=== PATIENT | male | born 1965 | race Caucasian/White ===

== ENCOUNTER 2019-08-16 04:28 | Day surgery (SDC) | payer OTHER ==
[2019-08-14 16:06] VITALS: BMI 26.4
[2019-08-16] MEDS ORDERED: LIDOCAINE HCL 1%, 10 MG/ML (20ML VIAL) ONE (07:13)
--- NOTE | 2019-08-16 07:37 | HP ---
Satellite H - Chief Complaint Chief Complaint: left thumb pain - Past Medical History Allergies/Adverse Reactions: Allergies Allergy/AdvReac Type Severity Reaction Status Date / Time No Known Allergies Allergy Verified 08/16/19 06:15 - Current Medications Current Medications: Home Medications Medication Instructions Recorded Gluc Tang/Chondro Tang A/Vit C/Mn 1 each PO DAILY 08/14/19 [Glucosamine Chondroitin Tab] Rosuvastatin [Crestor -] 10 mg PO DAILY 08/14/19 Hydrocodone/Acetaminophen 1 each PO Q6H #20 tablet MDD 4 08/16/19 [Hydrocodone-Acetamin 5-325 mg] Ibuprofen [Advil -] 400 mg PO PRN PRN 08/16/19 Satellite Physical Exam - Physical Examination Vital Signs: Vital Signs Period Temp Pulse Resp BP Sys/Cardona Pulse Ox Last 24 Hr 97.6 F-97.6 F 59-59 20-20 106-106/75-75 96 General Appearance: Well Nourished, Well Developed, Alert & Oriented x3 ENT: Clear Lung: Normal air movement Extremities: Other (left thumb- + ttp, decr rom IP jt, nvi,) Neurological: Intact, Alert, Oriented Satellite Impression/Plan - Impression/Plan Impression: left thumb fx Operative Procedure: left thumb orif vs excision of bone fragment Date to be Performed: 08/16/19
[2019-08-16] MEDS ORDERED: PROPOFOL 20 ML ONE ×5 (08:04→09:07)
[2019-08-16] MEDS ORDERED: MIDAZOLAM HCL 2 MG/2 ML SINGLE DOSE VIAL ONE (08:04)
[2019-08-16] MEDS ORDERED: ceFAZolin 2 GRAM PREMIX BAG IVPB ONE (08:18)
[2019-08-16] MEDS ORDERED: ceFAZolin SODIUM 1 GM VIAL ONE (08:19)
[2019-08-16] MEDS ORDERED: LIDOCAINE HCL 1%, 10 MG/ML (20ML VIAL) NR ONE ×2 (08:38)
[2019-08-16] MEDS ORDERED: BUPIVACAINE HCL/PF 0.5% (5 MG/ML) 30 ML VIAL IJ ONE ×2 (08:38)
--- NOTE | 2019-08-16 09:57 | OP ---
Operative Note - Note: Operative Date: 08/16/19 Pre-Operative Diagnosis: left thumb fracture dislocation Operation: left thumb ORIF, excision of bone fragment (distal phalanx), repair of radial collateral ligament, repair of volar plate Implants: Mitek Mini Quick anchor Post-Operative Diagnosis: Same as Pre-op Surgeon: Alexis Brady Anesthesiologist/[employer]NAG[employer] ADVISER: Candy Barkley Anesthesia: Local, MAC Specimens Removed: bone fragment, left thumb Estimated Blood Loss (mls): 0 Drains, Volume Out (mls): 0 Blood Volume Replaced (mls): 0 Fluid Volume Replaced (mls): 700 Operative Report Dictated: Yes
[2019-08-16] MEDS ORDERED: ONDANSETRON 4 MG/2 ML VIAL IVPUSH PRN (10:12)
[2019-08-16] MEDS ORDERED: ACETAMINOPHEN 325 MG TABLET (FP) PO PRN (10:12)
[2019-08-16] MEDS ORDERED: oxyCODONE HCL 5 MG TABLET PO PRN (10:12)
[2019-08-16] MEDS ORDERED: LACTATED RINGERS SOLUTION 1,000 ML IV SCH (10:15)
[2019-08-16] MEDS ORDERED: ONDANSETRON 4 MG/2 ML VIAL ONE (10:32)
--- NOTE | 2019-08-16 11:05 | OP ---
DATE OF OPERATION: 08/16/2019 PREOPERATIVE DIAGNOSIS: Left thumb fracture-dislocation and interphalangeal joint instability. POSTOPERATIVE DIAGNOSIS: Left thumb fracture-dislocation and interphalangeal joint instability. PROCEDURE: Left thumb open reduction and internal fixation; excision of bone fragment, distal phalanx; repair of radial collateral ligament and volar plate. SURGEON: Jamie Junior MD ASSISTANTS: None. ANESTHESIOLOGIST: Candy Barkley, REF-DO ANESTHESIA: MAC anesthesia with local injection of 15 mL of 0.5% Marcaine and 1% lidocaine mix. DRAINS: None. COMPLICATIONS: None. BLOOD LOSS: None. BLOOD GIVEN: None. SPECIMEN: Bone fragment, left thumb distal phalanx. FLUID REPLACEMENT: Plasma-Lyte 500 mL. This patient is a 54-year-old male with a preoperative diagnosis of a left thumb fracture-dislocation while skiing about 6 weeks ago. [place] the [place], but there was a large bone fragment on the radial base of the distal phalanx, that was displaced, comprising about 12% to 15% of the articular surface. It proved to be problematic, painful, prominent, and was not only tenting the skin, but limiting his ability to move the left thumb and limiting function. After extensive preoperative discussions to discuss the options, we discussed the potential risks, complications, alternatives, and benefits of surgery versus nonsurgical treatment. At this point, we are electing to go forward with surgery. The patient understands that he may go on to require additional surgery, instability, stiffness, decreased function, chronic pain, posttraumatic arthritis, and other potential complications which were discussed. The patient was brought into the operating room. Peripheral IV placed. IV sedation given. MAC anesthesia was induced. The entire case was done under 3.8 loupe magnification. The left upper extremity was prepped and draped in usual sterile fashion, elevated, exsanguinated with an Esmarch bandage. The tourniquet inflated to 250 mmHg. A mid-axial incision was marked out with a marking pen over the radial aspect of the left thumb IP joint. Next, 12 mL of 0.5% Marcaine and 1% lidocaine mix were injected in and around the surgical incision. Incision was made with a number-15 scalpel blade. Subcutaneous hemostasis was achieved with a bipolar cautery. Careful dissection was done with a small Littler scissors, exposing the bone fragment. There was the radial collateral ligament attached to it. However, the bone itself was not of good quality. It was quite soft and osteopenic. In addition, the radial collateral ligament was quite frayed and torn. The articular cartilage on this bone fragment had been scraped away, and there was none left. Therefore, I elected not to fix this fragment as I think it was unfixable or did not have a good enough risks:benefits ratio. Therefore, taking great care to preserve all soft tissue, I excised the bone fragments, passed it off the field as specimen. The joint was not particularly unstable without this bone fragment. The area was copiously irrigated and washed out. I then used a number-15 scalpel blade and a Joliet elevator to try to free up the soft tissue including the collateral ligament and the joint capsule on the radial side of the thumb IP joint, but because it had been off and displaced for 6 weeks now, it had become quite shortened. There was not a lot of tissue to work with, and what was there did not have great length. I was able to mobilize it to reach the base of the distal phalanx. I then used a 2-0 Vicryl suture, one dorsal and one repairing the volar plate on the volar side to take pressure off the later collateral ligament repair. I also pinned the IP joint with a 0.062 K-wire under direct C-arm fluoroscopy guidance. The pin was then bent, cut, and a green pin cap applied. This was locking the IP joint in very mild flexion and with a mild valgus force to again take pressure off the collateral ligament repair. This helped and I then put in a mini Mitek suture QUICKANCHOR into the distal phalanx and then used the preloaded Ethibond sutures to repair the collateral ligament down to the exposed cancellous bone of the distal phalanx. Although there was not much soft tissue to work with as mentioned, I was happy with the overall repair. The area was copiously irrigated and washed out. Next, 4-0 undyed Vicryl was used to close the deep dermal layer. Final skin reapproximation was done with a running subcuticular 4-0 Biosyn suture. The area was then washed and dried, covered with Steri-Strips, 4 x 4's, fluffs between the fingers, Webril, and I used a 4-inch Ortho-Glass thumb spica splint and wrapped it with Lanie and Coban. The tourniquet was taken down after total tourniquet time of 59 minutes. There were no complications during the case, and the patient was brought to the ambulatory recovery room in stable condition. Overall, I would say that it was a more complex reconstruction than the normal collateral ligament repair. JAMIE JUNIOR M.D. [id number]
[2019-08-16 12:34] VITALS: TEMP 97.8
[2019-08-16] MEDS ORDERED: ACETAMINOPHEN 325 MG TABLET (FP) ONE (12:43)
[2019-08-16 13:45] VITALS: BP 125/79; PULSE 51
--- NOTE | 2019-08-17 16:00 | PATH ---
Surgical Pathology Report Patient Name: MELISSA CAM [facility]. Rec. #: [id number] /Age/Gender: 1965 (Age: 54) / M Account: [id number] Location: [facility] [place] [facility] Taken: 08/16/2019 Received: 08/16/2019 Reported: 08/17/2019 Physicians: Alexis Brady M.D. Specimen(s) Received BONE LEFT THUMB Clinical History Fracture left thumb Final Diagnosis BONE LEFT THUMB, EXCISION: PORTION OF BONE WITH MARKED REACTIVE AND REMODELING CHANGE. NO HISTOLOGIC EVIDENCE OF OSTEOMYELITIS. Electronically Signed Imelda Romero M.D. Gross Description Received in formalin labeled "bone left thumb," is a 0.7 x 0.5 x 0.5 cm britt-yellow portion of bone. The specimen is bisected and entirely submitted in one cassette, following decalcification. 08/10/2019 saudi08/10/2019
== END 2019-08-16 13:40 | disposition home or self-care (01) ==
LOC: JASU-SURG 04:28
PROVIDERS: ATTEND Orthopaedic Surgery
PROC: 0RCX0ZZ Extirpation of Matter from Left Finger Phalangeal Joint, Open Approach (ICD-10-PCS; 2019-08-16)
PROC: 0PSS04Z Reposition Left Thumb Phalanx with Internal Fixation Device, Open Approach (ICD-10-PCS; principal; 2019-08-16 08:00)
PROC: 0MQ80ZZ Repair Left Hand Bursa and Ligament, Open Approach (ICD-10-PCS; 2019-08-16 08:00)
DX: S62.522A Displaced fracture of distal phalanx of left thumb, initial encounter for closed fracture (principal); M25.342 Other instability, left hand; S63.682A Other sprain of left thumb, initial encounter; X58.XXXA Exposure to other specified factors, initial encounter; Y93.23 Activity, snow (alpine) (downhill) skiing, snowboarding, sledding, tobogganing and snow tubing; Y92.89 Other specified places as the place of occurrence of the external cause
CPT/HCPCS: 73130-TC-LT-FY; 88305-TC; 88311-TC; 94760